=== PATIENT | male | born 1930 | race Caucasian/White ===

== ENCOUNTER 2017-10-13 11:38 | Inpatient (IN) | payer MEDICARE ==
[~2017-10-13] VITALS: Ht 170.2 cm; Wt 83.4 kg
[2017-10-13 12:15] LABS: BASOPHILS % (AUTO) 0.7 % (0.0-5.0); EOSINOPHILS % (AUTO) 1.2 % (0.0-8.0); HEMATOCRIT 38.4 % (42-54); LYMPHOCYTES % (AUTO) 2.5 % (21.0-51.0); MEAN CORPUSCULAR HEMOGLOBIN 27.6 pg (27.0-33.0); MEAN CORPUSCULAR HGB CONC 32.4 g/dL (32.0-36.0); MEAN CORPUSCULAR VOLUME 85.1 fL (79-99); MONOCYTES % (AUTO) 3.8 % (3.0-13.0); NEUTROPHILS % (AUTO) 91.8 % (40.0-77.0); PLATELET COUNT (AUTO) 258 K/uL (130-400); RED BLOOD CELL COUNT(AUTO) 4.51 MIL/uL (4.50-6.20); RED CELL DISTRIBUTION WIDTH 15.7 % (11.0-15.5); WHITE BLOOD COUNT (AUTO) 21.6 K/uL (4.8-10.8)
[2017-10-13 12:29] LABS: CREATININE 1.5 mg/dL (0.5-1.5); POTASSIUM 4.2 mmol/L (3.5-5.1)
[2017-10-13 12:34] LABS: ALBUMIN 2.9 g/dL (3.5-5.0); BILIRUBIN,TOTAL 0.7 mg/dL (0.2-1.0); TOTAL PROTEIN, SERUM 7.6 g/dL (6.0-8.3)
[2017-10-13 12:49] LABS: INR 2.23 (0.85-1.15); PARTIAL THROMBOPLASTIN TIME 52.7 SEC (26.3-35.5)
[2017-10-13] MEDS ORDERED: METHYLPREDNISOLONE SOD SUCC 125MG/2ML VIAL ONE (12:56)
[2017-10-13] MEDS ORDERED: LEVOFLOXACIN 750 MG/D5W 150 ML 150 ML ONE (12:57)
[2017-10-13] MEDS ORDERED: IPRATROPIUM/ALBUTEROL SULFATE 3 ML SOLUTION IH ONE ×3 (13:04)
[2017-10-13 14:08] LABS: ABG BASE EXCESS -4.7 mmol/L (-2.0-3.0); ABG HCO3 18.8 mmol/L (21.0-28.0); ABG OXYGEN SATURATION 94.8 % (95.0-99.0); ABG PCO2 31 mmHg (35-48)
[2017-10-13] MEDS ORDERED: DILTIAZEM HCL 60 MG TABLET ONE (15:44)
[2017-10-13 16:30] VITALS: BP 133/87
[2017-10-13] MEDS ORDERED: IPRATROPIUM/ALBUTEROL SULFATE 3 ML SOLUTION IH SCH (18:00)
[2017-10-13] MEDS ORDERED: METHYLPREDNISOLONE SOD SUCC 125MG/2ML VIAL IVP SCH (18:45)
[2017-10-13] MEDS: IPRATROPIUM/ALBUTEROL SULFATE 3 ML SOLUTION IH SCH (18:45)
[2017-10-13 18:55] LABS: APPEARANCE,URINE Clear (CLEAR); BILIRUBIN,URINE Negative (NEGATIVE); COLOR,URINE Dark Yellow (YELLOW); GLUCOSE, URINE (UA) Negative (NEGATIVE); KETONES,URINE Negative (NEGATIVE); LEUKOCYTE ESTERASE ,URINE Small (NEGATIVE); NITRATE,URINE Negative (NEGATIVE); OCCULT BLOOD,URINE Negative (NEGATIVE); PROTEIN,URINE POS 1+ (NEGATIVE)
[2017-10-13] MEDS ORDERED: OMEP20TA25 PO (19:02)
[2017-10-13 19:09] LABS: RBC,URINE 0-1 /HPF (0-1)
[2017-10-13 19:10] LABS: BACTERIA,URINE Few /HPF (None Seen)
[2017-10-13 19:11] LABS: SQUAMOUS EPITHELIAL CELL,UR Few /HPF (0-2)
[2017-10-13] MEDS ORDERED: FURO20TA6 PO (19:11)
[2017-10-13] MEDS ORDERED: WARF-57 PO (19:11)
[2017-10-13] MEDS ORDERED: METO-408 PO (19:11)
[2017-10-13] MEDS ORDERED: LEVO75TA10 PO (19:11)
[2017-10-13] MEDS ORDERED: ATOR10 PO (19:11)
[2017-10-13 19:12] LABS: AMORPHOUS SEDIMENT,UR Rare /LPF (None Seen)
[2017-10-13] MEDS ORDERED: prevagen PO (19:16)
[2017-10-13] MEDS ORDERED: PHARMACY COMMUNICATION MISC SCH (19:30)
[2017-10-13 19:41] VITALS: BP 110/69
[2017-10-13] MEDS: METOPROLOL TARTRATE 25 MG TAB PO SCH (20:22)
[2017-10-13] MEDS: ATORVASTATIN CALCIUM 10 MG TABLET PO SCH (20:26)
[2017-10-13] MEDS ORDERED: DILTIAZEM HCL 60 MG TABLET PO SCH (21:00)
[2017-10-13] MEDS ORDERED: WARFARIN SODIUM 5 MG TAB PO SCH (21:00)
[2017-10-13] MEDS ORDERED: GUAIFENESIN-DM 200/20 MG 10 ML ONE (22:59)
[2017-10-13 23:27] VITALS: BP 111/75
[2017-10-14] MEDS: IPRATROPIUM/ALBUTEROL SULFATE 3 ML SOLUTION IH SCH ×2 (00:16→06:52)
[2017-10-14] MEDS: METHYLPREDNISOLONE SOD SUCC 125MG/2ML VIAL IVP SCH ×5 (00:23→17:50)
[2017-10-14] MEDS: DILTIAZEM HCL 60 MG TABLET PO SCH ×4 (00:24→17:49)
[2017-10-14 03:53] VITALS: BP 110/71
[2017-10-14 04:27] LABS: HEMATOCRIT 35.9 % (42-54); MEAN CORPUSCULAR HEMOGLOBIN 28.4 pg (27.0-33.0); MEAN CORPUSCULAR HGB CONC 33.2 g/dL (32.0-36.0); MEAN CORPUSCULAR VOLUME 85.5 fL (79-99); NUCLEATED RED BLOOD CELLS 0.1 % (0.0-0.19); PLATELET COUNT (AUTO) 263 K/uL (130-400); RED BLOOD CELL COUNT(AUTO) 4.21 MIL/uL (4.50-6.20); RED CELL DISTRIBUTION WIDTH 15.7 % (11.0-15.5); WHITE BLOOD COUNT (AUTO) 21.5 K/uL (4.8-10.8)
[2017-10-14 04:37] LABS: CREATININE 1.6 mg/dL (0.5-1.5); POTASSIUM 4.5 mmol/L (3.5-5.1)
[2017-10-14 04:45] LABS: INR 2.72 (0.85-1.15)
[2017-10-14 04:49] LABS: B-TYPE NATRIURETIC PEPTIDE 218 pg/mL (0-100)
[2017-10-14 04:56] LABS: ABG BASE EXCESS -2.2 mmol/L (-2.0-3.0); ABG OXYGEN SATURATION 96.1 % (95.0-99.0); ABG PCO2 32 mmHg (35-48)
[2017-10-14] MEDS ORDERED: LEVOTHYROXINE 75 MCG TABLET ONE (06:24)
[2017-10-14] MEDS: LEVOTHYROXINE 75 MCG TABLET PO SCH (06:27)
[2017-10-14] MEDS: GUAIFENESIN-DM 200/20 MG 10 ML PO PRN (06:30)
[2017-10-14 07:45] VITALS: BP 126/75
[2017-10-14] MEDS: PANTOPRAZOLE SODIUM 40 MG TABLET.DR PO SCH (08:21)
[2017-10-14] MEDS: METOPROLOL TARTRATE 25 MG TAB PO SCH ×2 (08:21→21:15)
[2017-10-14] MEDS: FUROSEMIDE 20 MG TABLET PO SCH (08:21)
[2017-10-14] MEDS: PREVAGEN PO SCH (09:00)
[2017-10-14] MEDS ORDERED: CEFTRIAXONE 1GM/D5W 50ML 50 ML IV SCH (09:15)
[2017-10-14] MEDS ORDERED: ACETAMINOPHEN-CODEINE 300/30MG TAB PO PRN (09:15)
[2017-10-14] MEDS: GUAIFENESIN/DEXTROMETHORPHAN 1 EACH TAB.SR.12H PO SCH (09:15)
[2017-10-14] MEDS ORDERED: CEFTRIAXONE SODIUM 1 GM IVP SCH (09:30)
[2017-10-14] MEDS: BENZONATATE 100 MG CAPSULE PO SCH ×3 (10:42→21:12)
[2017-10-14 11:08] VITALS: BP 117/73
[2017-10-14] MEDS: IPRATROPIUM 0.5 MG/2.5 ML INH IH SCH ×2 (11:18→18:03)
[2017-10-14] MEDS: ALBUTEROL SULFATE 0.083% 2.5 MG/3 ML INH IH SCH ×2 (11:18→18:03)
[2017-10-14] MEDS ORDERED: SODIUM CHLORIDE FOR INHALATION 3 ML VIAL.NEB. IH ONE (11:31)
[2017-10-14 16:17] VITALS: BP 120/72
[2017-10-14] MEDS: BUDESONIDE 0.5 MG/2 ML INH IH SCH (18:04)
[2017-10-14] MEDS: ACETYLCYSTEINE 20% 200MG/ML 4ML VIAL IH SCH (18:04)
[2017-10-14 18:57] VITALS: BP 120/71
[2017-10-14] MEDS ORDERED: WARFARIN SODIUM 2 MG TAB PO SCH (21:00)
[2017-10-14] MEDS: ATORVASTATIN CALCIUM 10 MG TABLET PO SCH (21:10)
[2017-10-14 23:30] VITALS: BP 113/77
[2017-10-15] VITALS (7 sets, daily range): BP systolic 99–130; BP diastolic 69–89
[2017-10-15] MEDS: ACETYLCYSTEINE 20% 200MG/ML 4ML VIAL IH SCH ×2 (00:31→06:25)
[2017-10-15] MEDS: IPRATROPIUM 0.5 MG/2.5 ML INH IH SCH ×5 (00:32→23:08)
[2017-10-15] MEDS: ALBUTEROL SULFATE 0.083% 2.5 MG/3 ML INH IH SCH ×5 (00:32→23:09)
[2017-10-15] MEDS: METHYLPREDNISOLONE SOD SUCC 125MG/2ML VIAL IVP SCH ×4 (01:44→21:20)
[2017-10-15] MEDS: DILTIAZEM HCL 60 MG TABLET PO SCH ×5 (01:44→23:02)
[2017-10-15] MEDS: GUAIFENESIN/DEXTROMETHORPHAN 1 EACH TAB.SR.12H PO SCH ×3 (03:32→20:02)
[2017-10-15 04:13] LABS: CREATININE 1.7 mg/dL (0.5-1.5)
[2017-10-15 04:21] LABS: HEMATOCRIT 34.8 % (42-54); MEAN CORPUSCULAR HEMOGLOBIN 27.8 pg (27.0-33.0); MEAN CORPUSCULAR VOLUME 84.2 fL (79-99); PARTIAL THROMBOPLASTIN TIME 53.8 SEC (26.3-35.5); PLATELET COUNT (AUTO) 274 K/uL (130-400); RED BLOOD CELL COUNT(AUTO) 4.13 MIL/uL (4.50-6.20); RED CELL DISTRIBUTION WIDTH 15.6 % (11.0-15.5)
[2017-10-15 04:27] LABS: INR 3.89 (0.85-1.15); PROTHROMBIN TIME 39.8 SEC (9.6-11.6); WHITE BLOOD COUNT (AUTO) 31.3 K/uL (4.8-10.8)
[2017-10-15 04:42] LABS: BAND NEUTROPHILS % (MANUAL) 2 % (0-2); LYMPHOCYTES % (MANUAL) 4 % (22-44); MAN.DIFF COMMENT-IMPRESSION MANUAL DIFFERENTIAL; MONOCYTES % (MANUAL) 1 % (2-9); PLATELET MORPHOLOGY COMMENT ADEQUATE; SEGMENTED NEUTROPHILS % 93 % (40-70)
[2017-10-15] MEDS: LEVOTHYROXINE 75 MCG TABLET PO SCH (06:25)
[2017-10-15] MEDS: BUDESONIDE 0.5 MG/2 ML INH IH SCH ×2 (07:02→18:58)
[2017-10-15] MEDS: PANTOPRAZOLE SODIUM 40 MG TABLET.DR PO SCH (08:22)
[2017-10-15] MEDS: AZITHROMYCIN 500MG+NS 250ML 250 ML IV SCH (08:23)
[2017-10-15] MEDS: BENZONATATE 100 MG CAPSULE PO SCH ×3 (08:23→20:02)
[2017-10-15] MEDS: METOPROLOL TARTRATE 25 MG TAB PO SCH ×2 (08:23→20:02)
[2017-10-15] MEDS: FUROSEMIDE 20 MG TABLET PO SCH (08:23)
[2017-10-15] MEDS: PREVAGEN PO SCH (08:24)
[2017-10-15] MEDS ORDERED: SODIUM CHLORIDE FOR INHALATION 3 ML VIAL.NEB. IH ONE (10:29)
[2017-10-15] MEDS: ZOSYN 3.375GM+NS 50ML 50 ML IV SCH ×2 (12:04→20:02)
[2017-10-15] MEDS: GUAIFENESIN-DM 200/20 MG 10 ML PO PRN (17:59)
[2017-10-15] MEDS: ATORVASTATIN CALCIUM 10 MG TABLET PO SCH (20:02)
[2017-10-16] VITALS (7 sets, daily range): BP systolic 113–135; BP diastolic 75–91
[2017-10-16 03:58] LABS: HEMATOCRIT 33.2 % (42-54); MEAN CORPUSCULAR HEMOGLOBIN 28.9 pg (27.0-33.0); MEAN CORPUSCULAR HGB CONC 34.2 g/dL (32.0-36.0); MEAN CORPUSCULAR VOLUME 84.4 fL (79-99); PLATELET COUNT (AUTO) 304 K/uL (130-400); RED BLOOD CELL COUNT(AUTO) 3.93 MIL/uL (4.50-6.20); RED CELL DISTRIBUTION WIDTH 15.5 % (11.0-15.5); WHITE BLOOD COUNT (AUTO) 25.6 K/uL (4.8-10.8)
[2017-10-16 04:09] LABS: CREATININE 1.8 mg/dL (0.5-1.5); PARTIAL THROMBOPLASTIN TIME 48.8 SEC (26.3-35.5)
[2017-10-16 04:29] LABS: BAND NEUTROPHILS % (MANUAL) 1 % (0-2); LYMPHOCYTES % (MANUAL) 6 % (22-44); MAN.DIFF COMMENT-IMPRESSION MANUAL DIFFERENTIAL; MONOCYTES % (MANUAL) 3 % (2-9); PLATELET MORPHOLOGY COMMENT ADEQUATE; SEGMENTED NEUTROPHILS % 90 % (40-70)
[2017-10-16 04:49] LABS: INR 4.24 (0.85-1.15); PROTHROMBIN TIME 43.3 SEC (9.6-11.6)
[2017-10-16] MEDS: DILTIAZEM HCL 60 MG TABLET PO SCH ×3 (05:07→18:27)
[2017-10-16] MEDS: LEVOTHYROXINE 75 MCG TABLET PO SCH (05:07)
[2017-10-16] MEDS: METHYLPREDNISOLONE SOD SUCC 125MG/2ML VIAL IVP SCH ×3 (05:08→20:36)
[2017-10-16] MEDS: ZOSYN 3.375GM+NS 50ML 50 ML IV SCH ×3 (05:08→20:36)
[2017-10-16] MEDS: IPRATROPIUM 0.5 MG/2.5 ML INH IH SCH ×4 (05:31→23:30)
[2017-10-16] MEDS: BUDESONIDE 0.5 MG/2 ML INH IH SCH ×2 (05:31→18:24)
[2017-10-16] MEDS: ALBUTEROL SULFATE 0.083% 2.5 MG/3 ML INH IH SCH ×4 (05:31→23:30)
[2017-10-16] MEDS: METOPROLOL TARTRATE 25 MG TAB PO SCH ×2 (08:32→20:36)
[2017-10-16] MEDS: AZITHROMYCIN 500MG+NS 250ML 250 ML IV SCH (08:32)
[2017-10-16] MEDS: PREVAGEN PO SCH (08:32)
[2017-10-16] MEDS: BENZONATATE 100 MG CAPSULE PO SCH ×3 (08:32→20:36)
[2017-10-16] MEDS: GUAIFENESIN/DEXTROMETHORPHAN 1 EACH TAB.SR.12H PO SCH ×2 (08:32→20:36)
[2017-10-16] MEDS: PANTOPRAZOLE SODIUM 40 MG TABLET.DR PO SCH (08:32)
[2017-10-16] MEDS: ATORVASTATIN CALCIUM 10 MG TABLET PO SCH (20:36)
[2017-10-17] MEDS: DILTIAZEM HCL 60 MG TABLET PO SCH ×5 (00:03→23:53)
[2017-10-17 04:14] LABS: HEMATOCRIT 35.1 % (42-54); MEAN CORPUSCULAR HEMOGLOBIN 27.3 pg (27.0-33.0); MEAN CORPUSCULAR HGB CONC 32.4 g/dL (32.0-36.0); MEAN CORPUSCULAR VOLUME 84.3 fL (79-99); PLATELET COUNT (AUTO) 311 K/uL (130-400); RED BLOOD CELL COUNT(AUTO) 4.16 MIL/uL (4.50-6.20); RED CELL DISTRIBUTION WIDTH 15.7 % (11.0-15.5); WHITE BLOOD COUNT (AUTO) 24.1 K/uL (4.8-10.8)
[2017-10-17 04:26] LABS: CREATININE 1.8 mg/dL (0.5-1.5); POTASSIUM 4.2 mmol/L (3.5-5.1)
[2017-10-17 04:34] VITALS: BP 111/72
[2017-10-17 04:42] LABS: INR 3.9 (0.85-1.15); PROTHROMBIN TIME 39.9 SEC (9.6-11.6)
[2017-10-17] MEDS: IPRATROPIUM 0.5 MG/2.5 ML INH IH SCH ×4 (05:51→23:17)
[2017-10-17] MEDS: BUDESONIDE 0.5 MG/2 ML INH IH SCH ×2 (05:51→18:05)
[2017-10-17] MEDS: ALBUTEROL SULFATE 0.083% 2.5 MG/3 ML INH IH SCH ×4 (05:51→23:17)
[2017-10-17] MEDS: ZOSYN 3.375GM+NS 50ML 50 ML IV SCH (06:19)
[2017-10-17] MEDS: LEVOTHYROXINE 75 MCG TABLET PO SCH (06:19)
[2017-10-17 07:00] VITALS: BP 138/79
[2017-10-17] MEDS: BENZONATATE 100 MG CAPSULE PO SCH ×3 (08:21→20:01)
[2017-10-17] MEDS: GUAIFENESIN/DEXTROMETHORPHAN 1 EACH TAB.SR.12H PO SCH ×2 (08:21→20:01)
[2017-10-17] MEDS: METOPROLOL TARTRATE 25 MG TAB PO SCH ×2 (08:21→20:01)
[2017-10-17] MEDS: PANTOPRAZOLE SODIUM 40 MG TABLET.DR PO SCH (08:21)
[2017-10-17] MEDS: AZITHROMYCIN 500MG+NS 250ML 250 ML IV SCH (08:22)
[2017-10-17] MEDS: METHYLPREDNISOLONE SOD SUCC 125MG/2ML VIAL IVP SCH (08:22)
[2017-10-17] MEDS: PREVAGEN PO SCH (08:22)
[2017-10-17] MEDS: PREDNISONE 10 MG TABLET PO SCH (09:00)
[2017-10-17] MEDS ORDERED: CEFTRIAXONE 1GM/D5W 50ML 50 ML IV SCH (09:00)
[2017-10-17 11:00] VITALS: BP 125/83
[2017-10-17] MEDS: CEFTRIAXONE SODIUM 1 GM IVP SCH (13:59)
[2017-10-17 16:00] VITALS: BP 142/90
[2017-10-17] MEDS: LACTULOSE 20 GM/30 ML UDCUP PO PRN (16:44)
[2017-10-17 19:54] VITALS: BP 128/88
[2017-10-17] MEDS: ATORVASTATIN CALCIUM 10 MG TABLET PO SCH (20:01)
[2017-10-18] VITALS (7 sets, daily range): BP systolic 118–151; BP diastolic 64–93
[2017-10-18 03:56] LABS: HEMATOCRIT 35.8 % (42-54); MEAN CORPUSCULAR HEMOGLOBIN 28.3 pg (27.0-33.0); MEAN CORPUSCULAR HGB CONC 33.6 g/dL (32.0-36.0); PLATELET COUNT (AUTO) 315 K/uL (130-400); RED BLOOD CELL COUNT(AUTO) 4.26 MIL/uL (4.50-6.20); RED CELL DISTRIBUTION WIDTH 16.1 % (11.0-15.5); WHITE BLOOD COUNT (AUTO) 26.7 K/uL (4.8-10.8)
[2017-10-18 04:04] LABS: INR 3.18 (0.85-1.15); PROTHROMBIN TIME 32.6 SEC (9.6-11.6)
[2017-10-18] MEDS: IPRATROPIUM 0.5 MG/2.5 ML INH IH SCH ×4 (05:55→23:02)
[2017-10-18] MEDS: ALBUTEROL SULFATE 0.083% 2.5 MG/3 ML INH IH SCH ×4 (06:00→23:02)
[2017-10-18] MEDS: BUDESONIDE 0.5 MG/2 ML INH IH SCH ×2 (06:10→19:45)
[2017-10-18] MEDS: LEVOTHYROXINE 75 MCG TABLET PO SCH (06:16)
[2017-10-18] MEDS: DILTIAZEM HCL 60 MG TABLET PO SCH ×3 (06:17→17:01)
[2017-10-18] MEDS: PREVAGEN PO SCH (09:00)
[2017-10-18] MEDS: AZITHROMYCIN 500MG+NS 250ML 250 ML IV SCH (09:51)
[2017-10-18] MEDS: PREDNISONE 10 MG TABLET PO SCH (09:51)
[2017-10-18] MEDS: GUAIFENESIN/DEXTROMETHORPHAN 1 EACH TAB.SR.12H PO SCH ×2 (09:52→22:37)
[2017-10-18] MEDS: CEFTRIAXONE SODIUM 1 GM IVP SCH (09:52)
[2017-10-18] MEDS: FUROSEMIDE 20 MG TABLET PO SCH (09:52)
[2017-10-18] MEDS: PANTOPRAZOLE SODIUM 40 MG TABLET.DR PO SCH (09:52)
[2017-10-18] MEDS: METOPROLOL TARTRATE 25 MG TAB PO SCH ×2 (09:52→22:37)
[2017-10-18] MEDS: BENZONATATE 100 MG CAPSULE PO SCH ×3 (09:52→22:37)
[2017-10-18] MEDS: LACTULOSE 20 GM/30 ML UDCUP PO PRN (12:22)
[2017-10-18] MEDS: ATORVASTATIN CALCIUM 10 MG TABLET PO SCH (22:37)
[2017-10-19] MEDS: DILTIAZEM HCL 60 MG TABLET PO SCH ×4 (00:36→17:00)
[2017-10-19 04:03] LABS: INR 2.43 (0.85-1.15); PROTHROMBIN TIME 25.1 SEC (9.6-11.6)
[2017-10-19 04:06] LABS: CREATININE 1.3 mg/dL (0.5-1.5); POTASSIUM 4.4 mmol/L (3.5-5.1)
[2017-10-19 05:10] VITALS: BP 135/88
[2017-10-19] MEDS: BUDESONIDE 0.5 MG/2 ML INH IH SCH ×2 (06:38→18:47)
[2017-10-19] MEDS: IPRATROPIUM 0.5 MG/2.5 ML INH IH SCH ×4 (06:38→23:23)
[2017-10-19] MEDS: ALBUTEROL SULFATE 0.083% 2.5 MG/3 ML INH IH SCH ×4 (06:38→23:24)
[2017-10-19] MEDS: LEVOTHYROXINE 75 MCG TABLET PO SCH (06:44)
[2017-10-19 07:00] VITALS: BP 132/72
[2017-10-19] MEDS: FUROSEMIDE 20 MG TABLET PO SCH ×2 (09:00→10:01)
[2017-10-19] MEDS: PREVAGEN PO SCH (09:00)
[2017-10-19] MEDS: BENZONATATE 100 MG CAPSULE PO SCH ×3 (09:33→21:28)
[2017-10-19] MEDS: PREDNISONE 10 MG TABLET PO SCH (09:34)
[2017-10-19] MEDS: METOPROLOL TARTRATE 25 MG TAB PO SCH ×2 (09:34→21:28)
[2017-10-19] MEDS: PANTOPRAZOLE SODIUM 40 MG TABLET.DR PO SCH (09:34)
[2017-10-19] MEDS: GUAIFENESIN/DEXTROMETHORPHAN 1 EACH TAB.SR.12H PO SCH ×2 (09:34→21:27)
[2017-10-19] MEDS: CEFTRIAXONE SODIUM 1 GM IVP SCH (09:36)
[2017-10-19] MEDS: AZITHROMYCIN 500MG+NS 250ML 250 ML IV SCH (09:36)
[2017-10-19 11:00] VITALS: BP 136/82
[2017-10-19] MEDS: NYSTATIN 100000 UNIT/ML 5ML UDCUP PO SCH ×3 (12:47→21:28)
[2017-10-19 16:00] VITALS: BP 128/73
[2017-10-19] MEDS: WARFARIN SODIUM 2.5 MG TAB PO SCH (16:43)
[2017-10-19 19:38] VITALS: BP 129/80
[2017-10-19] MEDS: ATORVASTATIN CALCIUM 10 MG TABLET PO SCH (21:27)
[2017-10-20] VITALS (7 sets, daily range): BP systolic 115–142; BP diastolic 59–97
[2017-10-20] MEDS: DILTIAZEM HCL 60 MG TABLET PO SCH ×5 (00:14→23:33)
[2017-10-20 03:25] LABS: HEMATOCRIT 36.1 % (42-54); MEAN CORPUSCULAR HEMOGLOBIN 28.5 pg (27.0-33.0); MEAN CORPUSCULAR HGB CONC 33.9 g/dL (32.0-36.0); MEAN CORPUSCULAR VOLUME 84.2 fL (79-99); PLATELET COUNT (AUTO) 277 K/uL (130-400); RED BLOOD CELL COUNT(AUTO) 4.29 MIL/uL (4.50-6.20); RED CELL DISTRIBUTION WIDTH 15.8 % (11.0-15.5); WHITE BLOOD COUNT (AUTO) 22.9 K/uL (4.8-10.8)
[2017-10-20 03:34] LABS: INR 1.92 (0.85-1.15); PROTHROMBIN TIME 19.9 SEC (9.6-11.6)
[2017-10-20 03:35] LABS: CREATININE 1.4 mg/dL (0.5-1.5); POTASSIUM 4.4 mmol/L (3.5-5.1)
[2017-10-20] MEDS: BUDESONIDE 0.5 MG/2 ML INH IH SCH ×2 (05:50→19:55)
[2017-10-20] MEDS: ALBUTEROL SULFATE 0.083% 2.5 MG/3 ML INH IH SCH ×4 (05:50→23:32)
[2017-10-20] MEDS: IPRATROPIUM 0.5 MG/2.5 ML INH IH SCH ×4 (05:50→23:32)
[2017-10-20] MEDS ORDERED: LEVOTHYROXINE 75 MCG TABLET PO SCH (08:30)
[2017-10-20] MEDS: PREVAGEN PO SCH (09:00)
[2017-10-20] MEDS ORDERED: PREDNISONE 20 MG TABLET PO SCH (09:00)
[2017-10-20] MEDS: PREDNISONE 10 MG TABLET PO SCH (09:39)
[2017-10-20] MEDS: PANTOPRAZOLE SODIUM 40 MG TABLET.DR PO SCH (09:39)
[2017-10-20] MEDS: METOPROLOL TARTRATE 25 MG TAB PO SCH ×2 (09:39→20:38)
[2017-10-20] MEDS: FUROSEMIDE 20 MG TABLET PO SCH (09:39)
[2017-10-20] MEDS: BENZONATATE 100 MG CAPSULE PO SCH ×3 (09:39→20:38)
[2017-10-20] MEDS: GUAIFENESIN/DEXTROMETHORPHAN 1 EACH TAB.SR.12H PO SCH ×2 (09:39→20:38)
[2017-10-20] MEDS: CEFTRIAXONE SODIUM 1 GM IVP SCH (09:40)
[2017-10-20] MEDS: AZITHROMYCIN 500MG+NS 250ML 250 ML IV SCH (09:40)
[2017-10-20] MEDS: NYSTATIN 100000 UNIT/ML 5ML UDCUP PO SCH ×4 (09:40→20:38)
[2017-10-20] MEDS: WARFARIN SODIUM 2.5 MG TAB PO SCH (17:01)
[2017-10-20] MEDS: ATORVASTATIN CALCIUM 10 MG TABLET PO SCH (20:38)
[2017-10-21 04:00] VITALS: BP 129/71
[2017-10-21 04:24] LABS: HEMATOCRIT 38.5 % (42-54); MEAN CORPUSCULAR HEMOGLOBIN 27.8 pg (27.0-33.0); MEAN CORPUSCULAR HGB CONC 32.9 g/dL (32.0-36.0); MEAN CORPUSCULAR VOLUME 84.4 fL (79-99); PLATELET COUNT (AUTO) 284 K/uL (130-400); RED BLOOD CELL COUNT(AUTO) 4.56 MIL/uL (4.50-6.20); RED CELL DISTRIBUTION WIDTH 15.7 % (11.0-15.5); WHITE BLOOD COUNT (AUTO) 21.2 K/uL (4.8-10.8)
[2017-10-21 04:47] LABS: CREATININE 1.3 mg/dL (0.5-1.5); POTASSIUM 4.3 mmol/L (3.5-5.1)
[2017-10-21] MEDS: DILTIAZEM HCL 60 MG TABLET PO SCH ×2 (06:02→12:54)
[2017-10-21] MEDS: ALBUTEROL SULFATE 0.083% 2.5 MG/3 ML INH IH SCH ×2 (06:08→11:03)
[2017-10-21] MEDS: IPRATROPIUM 0.5 MG/2.5 ML INH IH SCH ×2 (06:08→11:03)
[2017-10-21] MEDS: BUDESONIDE 0.5 MG/2 ML INH IH SCH (06:26)
[2017-10-21] MEDS ORDERED: LEVOTHYROXINE 75 MCG TABLET PO SCH (06:30)
[2017-10-21 07:00] VITALS: BP 140/86
[2017-10-21] MEDS: CEFTRIAXONE SODIUM 1 GM IVP SCH (08:54)
[2017-10-21] MEDS: NYSTATIN 100000 UNIT/ML 5ML UDCUP PO SCH ×2 (08:55→12:54)
[2017-10-21] MEDS: FUROSEMIDE 20 MG TABLET PO SCH (08:55)
[2017-10-21] MEDS: METOPROLOL TARTRATE 25 MG TAB PO SCH (08:55)
[2017-10-21] MEDS: PANTOPRAZOLE SODIUM 40 MG TABLET.DR PO SCH (08:55)
[2017-10-21] MEDS: BENZONATATE 100 MG CAPSULE PO SCH ×2 (08:55→12:54)
[2017-10-21] MEDS: PREDNISONE 10 MG TABLET PO SCH (08:55)
[2017-10-21] MEDS: GUAIFENESIN/DEXTROMETHORPHAN 1 EACH TAB.SR.12H PO SCH (08:55)
[2017-10-21] MEDS: PREVAGEN PO SCH (08:56)
[2017-10-21] MEDS: AZITHROMYCIN 500MG+NS 250ML 250 ML IV SCH (08:56)
[2017-10-21 11:00] VITALS: BP 130/72
[2017-10-21] MEDS: WARFARIN SODIUM 2.5 MG TAB PO SCH (14:23)
== END 2017-10-21 14:34 | DRG 193 ==
LOC: EDH 11:38 → EDHIP 15:10 → 2AH 16:21
PROVIDERS: ADMIT Internal Medicine; ATTEND Internal Medicine
DX: J18.9 Pneumonia, unspecified organism (principal); J96.90 Respiratory failure, unspecified, unspecified whether with hypoxia or hypercapnia; D68.69 Other thrombophilia; N39.0 Urinary tract infection, site not specified; J44.0 Chronic obstructive pulmonary disease with (acute) lower respiratory infection; J44.1 Chronic obstructive pulmonary disease with (acute) exacerbation; J98.11 Atelectasis; I48.91 Unspecified atrial fibrillation; I10 Essential (primary) hypertension; E78.5 Hyperlipidemia, unspecified; E03.9 Hypothyroidism, unspecified; Z79.01 Long term (current) use of anticoagulants; Z87.891 Personal history of nicotine dependence; Z87.440 Personal history of urinary (tract) infections; Z82.49 Family history of ischemic heart disease and other diseases of the circulatory system
CPT/HCPCS: 36415; 36600; 71046; 71250; 80048; 80053; 81001; 82803; 82948; 83605; 83880; 84484; 85025; 85027; 85610; 85730; 87040; 87071; 87088; 87106; 87205; 92610; 93005; 94640; 94660; 94664; 97039; 99291; A4218; A4344; J0456; J0696; J1956; J2543; J2930; J7512; J7608

== ENCOUNTER → 2017-11-20 | Outpatient (CLI) | payer MEDICARE ==
[~2017-11-20] MED LIST: ATOR10 PO; FURO20TA6 PO; LEVO75TA10 PO; METO-408 PO; OMEP20TA25 PO; WARF-57 PO; prevagen PO
== END | disposition home or self-care (01) ==
LOC: RAH 14:17
PROVIDERS: ATTEND Nurse Practitioner Adult Health
DX: R22.2 Localized swelling, mass and lump, trunk (principal)
CPT/HCPCS: 76705

== ENCOUNTER 2018-04-03 16:28 | Inpatient (IN) | payer MEDICARE ==
[~2018-04-03] VITALS: Ht 170.2 cm; Wt 74.2 kg
[2018-04-03] MEDS ORDERED: ZOSYN 3.375GM+NS 50ML 50 ML IV ONE (16:54)
[2018-04-03] MEDS ORDERED: LEVOFLOXACIN 500 MG/D5W 100 ML 100 ML ONE (16:55)
[2018-04-03] MEDS ORDERED: SODIUM CHLORIDE 0.9% 100 ML IV ONE ×2 (16:55→19:32)
[2018-04-03] MEDS ORDERED: SODIUM CHLORIDE 0.9% 10 ML VIAL IVP PRN (17:15)
[2018-04-03 17:19] LABS: BASOPHILS % (AUTO) 0.5 % (0.0-5.0); HEMATOCRIT 41.7 % (42-54); LYMPHOCYTES % (AUTO) 7.6 % (21.0-51.0); MEAN CORPUSCULAR HEMOGLOBIN 30.2 pg (27.0-33.0); MEAN CORPUSCULAR HGB CONC 33.4 g/dL (32.0-36.0); MEAN CORPUSCULAR VOLUME 90.3 fL (79-99); MONOCYTES % (AUTO) 7.2 % (3.0-13.0); NEUTROPHILS % (AUTO) 84.7 % (40.0-77.0); NUCLEATED RED BLOOD CELLS 0.1 % (0.0-0.19); PLATELET COUNT (AUTO) 186 K/uL (130-400); RED BLOOD CELL COUNT(AUTO) 4.61 MIL/uL (4.50-6.20); RED CELL DISTRIBUTION WIDTH 15.5 % (11.0-15.5); WHITE BLOOD COUNT (AUTO) 11.5 K/uL (4.8-10.8)
[2018-04-03] MEDS ORDERED: LEVOFLOXACIN 750 MG/D5W 150 ML 150 ML ONE (17:21)
[2018-04-03 17:24] LABS: CREATININE 1.7 mg/dL (0.5-1.5); POTASSIUM 3.4 mmol/L (3.5-5.1)
[2018-04-03 17:29] LABS: ALBUMIN 3.7 g/dL (3.5-5.0); BILIRUBIN,TOTAL 1.1 mg/dL (0.2-1.0); TOTAL PROTEIN, SERUM 7.6 g/dL (6.0-8.3)
[2018-04-03] MEDS ORDERED: DILTIAZEM HCL 5 MG/ML 10 ML VIAL IV ONE (19:24)
[2018-04-03] MEDS ORDERED: DILTIAZEM HCL 125 MG/25 ML VIAL IV ONE (19:32)
[2018-04-03 19:35] LABS: APPEARANCE,URINE CLOUDY (CLEAR); BILIRUBIN,URINE NEGATIVE (NEGATIVE); COLOR,URINE YELLOW (YELLOW); GLUCOSE, URINE (UA) NEGATIVE (NEGATIVE); KETONES,URINE NEGATIVE (NEGATIVE); LEUKOCYTE ESTERASE ,URINE LARGE (NEGATIVE); NITRATE,URINE NEGATIVE (NEGATIVE); OCCULT BLOOD,URINE SMALL (NEGATIVE); PROTEIN,URINE NEGATIVE (NEGATIVE); UROBILINOGEN,URINE 0.2 mg/dL (0.2-1.0)
[2018-04-03 19:55] LABS: BACTERIA,URINE Few /HPF (None Seen); SQUAMOUS EPITHELIAL CELL,UR Rare /HPF (0-2); WBC,URINE >100 /HPF (0-1)
[2018-04-03] MEDS ORDERED: IPRATROPIUM 0.5 MG/2.5 ML INH IH ONE (20:11)
[2018-04-03 21:28] LABS: PARTIAL THROMBOPLASTIN TIME 61.5 SEC (26.3-35.5)
[2018-04-03 21:57] LABS: PROTHROMBIN TIME 39.7 SEC (9.6-11.6)
[2018-04-03 21:58] LABS: INR 3.88 (0.85-1.15)
[2018-04-03 22:03] VITALS: BP 93/58
[2018-04-03] MEDS ORDERED: DILTIAZEM 125MG+100 ML NS 125 ML IV SCH (22:30)
[2018-04-03 22:31] LABS: HEMATOCRIT 37.4 % (42-54); MEAN CORPUSCULAR HEMOGLOBIN 29.9 pg (27.0-33.0); MEAN CORPUSCULAR HGB CONC 33.3 g/dL (32.0-36.0); MEAN CORPUSCULAR VOLUME 89.9 fL (79-99); PLATELET COUNT (AUTO) 164 K/uL (130-400); RED BLOOD CELL COUNT(AUTO) 4.17 MIL/uL (4.50-6.20); RED CELL DISTRIBUTION WIDTH 15.3 % (11.0-15.5); WHITE BLOOD COUNT (AUTO) 7.3 K/uL (4.8-10.8)
[2018-04-03 23:02] LABS: CREATININE 1.7 mg/dL (0.5-1.5); POTASSIUM 3.4 mmol/L (3.5-5.1); TOTAL PROTEIN, SERUM 6.6 g/dL (6.0-8.3)
[2018-04-03] MEDS ORDERED: FERR325T22 PO (23:15)
[2018-04-03] MEDS ORDERED: CYAN-35 PO (23:15)
[2018-04-04] VITALS (7 sets, daily range): BP systolic 90–112; BP diastolic 47–77
[2018-04-04] MEDS: IPRATROPIUM 0.5 MG/2.5 ML INH IH SCH ×5 (00:52→23:33)
[2018-04-04] MEDS ORDERED: ZOSYN 3.375GM+NS 50ML 50 ML IV ONE (01:45)
[2018-04-04] MEDS: FUROSEMIDE 10 MG/ML 2ML VIAL IV SCH ×4 (06:00→17:52)
[2018-04-04] MEDS: CEFTRIAXONE SODIUM 1 GM IVP SCH (13:46)
[2018-04-04] MEDS ORDERED: PHARMACY COMMUNICATION MISC SCH (20:30)
[2018-04-04] MEDS ORDERED: WARFARIN SODIUM 5 MG TAB PO SCH (21:00)
[2018-04-04] MEDS ORDERED: METOPROLOL TARTRATE 50 MG TAB PO ONE (21:30)
[2018-04-05 03:42] VITALS: BP 98/66
[2018-04-05] MEDS: IPRATROPIUM 0.5 MG/2.5 ML INH IH SCH ×3 (06:18→18:47)
[2018-04-05 07:13] LABS: HEMATOCRIT 32.4 % (42-54); MEAN CORPUSCULAR HGB CONC 33.6 g/dL (32.0-36.0); MEAN CORPUSCULAR VOLUME 89.1 fL (79-99); PLATELET COUNT (AUTO) 144 K/uL (130-400); RED BLOOD CELL COUNT(AUTO) 3.64 MIL/uL (4.50-6.20); WHITE BLOOD COUNT (AUTO) 6.5 K/uL (4.8-10.8)
[2018-04-05 07:27] VITALS: BP 107/60
[2018-04-05 07:29] LABS: ALBUMIN 2.7 g/dL (3.5-5.0); BILIRUBIN,TOTAL 0.6 mg/dL (0.2-1.0); POTASSIUM 3.7 mmol/L (3.5-5.1); TOTAL PROTEIN, SERUM 5.9 g/dL (6.0-8.3)
[2018-04-05] MEDS ORDERED: TOPROL 50 MG PO SCH (09:00)
[2018-04-05] MEDS: CEFTRIAXONE SODIUM 1 GM IVP SCH (11:05)
[2018-04-05] MEDS: FUROSEMIDE 20 MG TABLET PO SCH ×2 (11:07→16:48)
[2018-04-05 11:09] VITALS: BP 110/70
[2018-04-05] MEDS: METOPROLOL TARTRATE 50 MG TAB PO SCH ×2 (12:25→21:38)
[2018-04-05 16:08] VITALS: BP 109/67
[2018-04-05 19:00] VITALS: BP 126/61
[2018-04-05 20:31] LABS: INR 1.77 (0.85-1.15); PROTHROMBIN TIME 18.4 SEC (9.6-11.6)
[2018-04-05] MEDS: WARFARIN SODIUM 5 MG TAB PO SCH (21:38)
[2018-04-05 23:00] VITALS: BP 105/79
[2018-04-06] MEDS: IPRATROPIUM 0.5 MG/2.5 ML INH IH SCH ×5 (00:23→22:58)
[2018-04-06 03:00] VITALS: BP 122/70
[2018-04-06 03:43] LABS: INR 1.64 (0.85-1.15); PROTHROMBIN TIME 17.1 SEC (9.6-11.6)
[2018-04-06 07:00] VITALS: BP 114/80
[2018-04-06] MEDS: FUROSEMIDE 20 MG TABLET PO SCH ×2 (09:14→17:54)
[2018-04-06] MEDS: METOPROLOL TARTRATE 50 MG TAB PO SCH ×2 (09:14→20:37)
[2018-04-06 11:00] VITALS: BP 120/66
[2018-04-06] MEDS: CEFTRIAXONE SODIUM 1 GM IVP SCH (12:36)
[2018-04-06 16:00] VITALS: BP 120/74
[2018-04-06 19:49] VITALS: BP 125/88
[2018-04-06] MEDS: WARFARIN SODIUM 5 MG TAB PO SCH (20:38)
[2018-04-06 23:53] VITALS: BP 129/85
[2018-04-07] VITALS (7 sets, daily range): BP systolic 104–156; BP diastolic 63–92
[2018-04-07] MEDS: IPRATROPIUM 0.5 MG/2.5 ML INH IH SCH ×4 (06:10→23:05)
[2018-04-07] MEDS: FUROSEMIDE 20 MG TABLET PO SCH ×2 (09:06→16:53)
[2018-04-07] MEDS: METOPROLOL TARTRATE 50 MG TAB PO SCH ×2 (09:06→20:30)
[2018-04-07] MEDS: CEFTRIAXONE SODIUM 1 GM IVP SCH (12:27)
[2018-04-07] MEDS: WARFARIN SODIUM 5 MG TAB PO SCH (20:30)
[2018-04-08 03:52] VITALS: BP 103/62
[2018-04-08 03:53] LABS: HEMATOCRIT 32.6 % (42-54); MEAN CORPUSCULAR HEMOGLOBIN 29.6 pg (27.0-33.0); MEAN CORPUSCULAR HGB CONC 33.7 g/dL (32.0-36.0); NUCLEATED RED BLOOD CELLS 0.1 % (0.0-0.19); PLATELET COUNT (AUTO) 153 K/uL (130-400); RED BLOOD CELL COUNT(AUTO) 3.71 MIL/uL (4.50-6.20); WHITE BLOOD COUNT (AUTO) 5.6 K/uL (4.8-10.8)
[2018-04-08 03:58] LABS: INR 1.36 (0.85-1.15); PARTIAL THROMBOPLASTIN TIME 40.9 SEC (26.3-35.5); PROTHROMBIN TIME 14.2 SEC (9.6-11.6)
[2018-04-08] MEDS: IPRATROPIUM 0.5 MG/2.5 ML INH IH SCH ×2 (05:56→11:07)
[2018-04-08 07:30] VITALS: BP 124/74
[2018-04-08] MEDS: FUROSEMIDE 20 MG TABLET PO SCH (08:52)
[2018-04-08] MEDS: METOPROLOL TARTRATE 50 MG TAB PO SCH (08:52)
== END 2018-04-08 13:45 | disposition home or self-care (01) | DRG 871 ==
LOC: EDH 16:28 → EDHIP 16:29 → 2AH 21:43
PROVIDERS: ADMIT Internal Medicine; ATTEND Internal Medicine
DX: A41.9 Sepsis, unspecified organism (principal); J18.9 Pneumonia, unspecified organism; J96.91 Respiratory failure, unspecified with hypoxia; J44.0 Chronic obstructive pulmonary disease with (acute) lower respiratory infection; N39.0 Urinary tract infection, site not specified; I13.0 Hypertensive heart and chronic kidney disease with heart failure and stage 1 through stage 4 chronic kidney disease, or unspecified chronic kidney disease; J84.10 Pulmonary fibrosis, unspecified; E03.9 Hypothyroidism, unspecified; I25.10 Atherosclerotic heart disease of native coronary artery without angina pectoris; I48.0 Paroxysmal atrial fibrillation; I48.2 Chronic atrial fibrillation; I50.9 Heart failure, unspecified; N18.9 Chronic kidney disease, unspecified; Z96.653 Presence of artificial knee joint, bilateral; E78.5 Hyperlipidemia, unspecified; Z79.01 Long term (current) use of anticoagulants; Z90.49 Acquired absence of other specified parts of digestive tract
CPT/HCPCS: 36415; 71045; 71046; 80053; 81001; 83605; 83880; 84484; 85025; 85027; 85610; 85730; 87040; 87088; 93005; 94640; 94664; 99291; A4218; J0696; J1940; J1956; J2543; J3490